=== PATIENT | male | born 1965 | race Caucasian/White ===

== ENCOUNTER 2019-12-31 13:39 | Emergency (ER) | payer SELFPAY ==
[~2019-12-31] VITALS: Ht 165.1 cm; Wt 63.0 kg
[2019-12-31] MEDS ORDERED: SODIUM CHLORIDE 0.9% 1000ML BAG (SEPSIS BOLUS) IV ONE (14:30)
[2019-12-31 15:18] LABS: CHLORIDE 111 mEq/L (98-107)
[2019-12-31 15:22] LABS: ETHANOL BLOOD < 10 mg/dL; INR 1.1; PROTHROMBIN TIME 11.9 sec (9.6-11.0)
[2019-12-31 15:28] LABS: CREATINE KINASE 671 IU/L (39-308)
[2019-12-31 15:31] LABS: HEMATOCRIT. 36.9 % (42.0-52.0); HEMOGLOBIN. 12.5 g/dL (14.0-18.0); MEAN CORPUSCULAR VOLUME 100.1 fL (80.0-94.0); MEAN PLATELET VOLUME 8.2 fl (7.4-10.4); PLATELET 115 x1000/uL (130-400); RED BLOOD CELL COUNT 3.68 mill/uL (4.7-6.1); RED CELL DISTRIBUTION WIDTH 13.3 % (11.6-14.6)
[2019-12-31 17:24] LABS: PLATELET ESTIMATE DECREASED
[2019-12-31 18:45] LABS: CHLORIDE 111 mEq/L (98-107)
[2019-12-31 19:15] LABS: CREATINE KINASE 967 IU/L (39-308)
[2019-12-31] MEDS ORDERED: SODIUM CHLORIDE 0.9% 1,000 ML IV ONE (19:30)
[2020-01-01 01:09] VITALS: BP 108/53
== END 2020-01-01 01:18 | disposition home or self-care (01) ==
LOC: ER 13:39 → EDBD 13:39 → EDBEDREQ 19:43 → EDBEDREQSVC 19:43 → CANBEDREQ 20:30 → ER 01-01 01:18
DX: E86.0 Dehydration (principal); R79.89 Other specified abnormal findings of blood chemistry; Z11.59 Encounter for screening for other viral diseases; G93.89 Other specified disorders of brain; R90.82 White matter disease, unspecified; Z59.0 Homelessness
CPT/HCPCS: 36415; 70450; 71045; 80048; 80053; 80307; 80320; 80329; 82550; 82962; 83605; 83690; 83880; 84145; 84443; 84484; 85025; 85610; 87040; 87635; 93005; 96360; 99285; J7030; G0480